=== PATIENT | female | born 1985 | race African-American/Black ===

== ENCOUNTER 2016-10-17 18:11 | Emergency (ER) | payer SELFPAY ==
[~2016-10-17] VITALS: Ht 167.6 cm; Wt 104.3 kg
[2016-10-17 18:17] VITALS: BP 115/58
[2016-10-17] MEDS ORDERED: AMOX500C PO (18:39)
[2016-10-17] MEDS ORDERED: HYDR-971 PO (18:39)
--- NOTE | 2016-10-17 18:39 | PHYS DOC ---
Past Medical History Past Medical History: No Pertinent History Past Surgical History: No Surgical History Additional Information: 5-6 CIGS/DAY Alcohol Use: None Drug Use: None Adult General Chief Complaint Chief Complaint: DENTAL PROBLEM HPI HPI Patient is a 30 year old female, history of poor dental health, comes emergency room today with complaint of atraumatic left-sided jaw pain and swelling that began approximately 2 days ago. Patient denies being on antibiotics or having dental procedures done within the past 30 days. She denies fevers, chills, myalgias or arthralgias. Review of Systems Review of Systems Constitutional: Denies fever or chills [] Eyes: Denies change in visual acuity, redness, or eye pain [] HENT: Denies nasal congestion or sore throat [] Respiratory: Denies cough or shortness of breath [] Cardiovascular: No additional information not addressed in HPI [] GI: Denies abdominal pain, nausea, vomiting, bloody stools or diarrhea [] : Denies dysuria or hematuria [] Musculoskeletal: Denies back pain or joint pain [] Integument: Denies rash or skin lesions [] Neurologic: Denies headache, focal weakness or sensory changes [] Endocrine: Denies polyuria or polydipsia [] Current Medications Current Medications Current Medications Medications (Trade) Dose Ordered Sig/Julisa Start Time Stop Time Status Last Admin Dose Admin Acetaminophen/ Hydrocodone Bitart (Lortab 5/325) 1 tab 1X ONCE 10/17/16 18:45 10/17/16 18:46 Amoxicillin (Amoxil) 500 mg 1X ONCE 10/17/16 18:45 10/17/16 18:46 Allergies Allergies Allergies Coded Allergies Type Severity Reaction Last Updated Verified No Known Drug Allergies 01/21/14 No Physical Exam Physical Exam Constitutional: Well developed, well nourished, no acute distress, non-toxic appearance. Patient is afebrile. HENT: Normocephalic, atraumatic, bilateral external ears normal, oropharynx moist, no oral exudates, nose normal. Left mandibular line and swollen with indurated soft tissues. There is no trismus. There is widespread dental caries and very stages of decay. The area of concern is along the left mandibular dentition with the first molar decayed into the pulp. There is a scant amount of purulent drainage coming from this area with surrounding gingival inflammation. Eyes: PERRLA, EOMI, conjunctiva normal, no discharge. [] Neck: Normal range of motion, no tenderness, supple, no stridor. [] Cardiovascular:Heart rate regular rhythm, no murmur [] Lungs & Thorax: Bilateral breath sounds clear to auscultation [] Abdomen: Bowel sounds normal, soft, no tenderness, no masses, no pulsatile masses. [] Skin: Warm, dry, no erythema, no rash. [] Back: No tenderness, no CVA tenderness. [] Extremities: No tenderness, no cyanosis, no clubbing, ROM intact, no edema. [] Neurologic: Alert and oriented X 3, normal motor function, normal sensory function, no focal deficits noted. [] Psychologic: Affect normal, judgement normal, mood normal. [] Current Patient Data Vital Signs Vital Signs Date Time Temp Pulse Resp B/P Pulse Ox O2 Delivery O2 Flow Rate FiO2 10/17/16 18:17 98.8 60 18 98 Room Air 98.8 EKG EKG [] Radiology/Procedures Radiology/Procedures [] Course & Med Decision Making Course & Med Decision Making Patient received 500 mg of amoxicillin and a Cecil 5/325 year the emergency department. She verbalizes understanding that she needs to follow up to see a dentist for definitive dental care. Dragon Disclaimer Dragon Disclaimer This electronic medical record was generated, in whole or in part, using a voice recognition dictation system. Departure Departure Impression: Primary Impression: Periapical abscess Disposition: HOME, SELF-CARE Condition: GOOD Referrals: NON,STAFF (PCP) Patient Instructions: Dental Abscess Additional Instructions: 1. Take the medication as prescribed. Apply a warm compress to the left jaw every 2 hours for 20-30 minutes at a time. 2. Review the discharge instructions provided for self-care and reasons to return to the emergency department. 3. Sure to call beginning tomorrow to schedule follow-up appointment with a dentist so that you may receive the appropriate dental care. Scripts Hydrocodone/Apap 5-325 (Cecil 5-325 Tablet)1 Each Tablet1 Tab PO PRN Q6HRS PRN PAIN #15 TAB Prov:NAI QUIÑONES 10/17/16 Amoxicillin 500 Mg [id number] Mg PO TID #30 CAP Prov:NAI QUIÑONES 10/17/16 NAI QUIÑONES Oct 17, 2016 18:39
[2016-10-17] MEDS ORDERED: AMOXICILLIN 250 MG CAPSULE. PO ONE (18:45)
[2016-10-17] MEDS ORDERED: HYDROCODONE/APAP 5/325MG TABLET. PO ONE (18:45)
== END 2016-10-17 18:51 | disposition home or self-care (01) ==
LOC: ER 18:11
DX: K04.7 Periapical abscess without sinus (principal); F17.210 Nicotine dependence, cigarettes, uncomplicated
CPT/HCPCS: 99283

== ENCOUNTER 2016-10-25 17:12 | Emergency (ER) | payer SELFPAY ==
[~2016-10-25] VITALS: Ht 157.5 cm; Wt 104.3 kg
[~2016-10-25 17:12] MED LIST: AMOX500C PO; HYDR-971 PO
[2016-10-25] MEDS ORDERED: ONDANSETRON PF 4 MG/2 ML VIAL. IV ONE (18:00)
[2016-10-25] MEDS ORDERED: IV NORMAL SALINE 1000ML BAG 1,000 ML IV ONE ×2 (18:00→20:00)
[2016-10-25] MEDS: FENTANYL PF 100 MCG/2 ML VIAL. IV PRN ×2 (18:02→20:02)
[2016-10-25 18:05] LABS: BASO % 0 % (0-3); EOS % 0 % (0-3); HEMATOCRIT 44.1 % (36.0-47.0); HEMOGLOBIN 14.9 g/dL (12.0-15.5); LYMPH # 2.2 x10^3/uL (1.0-4.8); LYMPH % 17 % (24-48); MEAN CORPUSCULAR HEMOGLOBIN 32 pg (25-35); MEAN CORPUSCULAR HGB CONC 34 g/dL (31-37); MEAN CORPUSCULAR VOLUME 94 fL (79-100); MONO % 8 % (0-9); NEUT % 75 % (31-73); PLATELET COUNT 286 x10^3/uL (140-400); RED BLOOD COUNT 4.67 x10^6/uL (3.50-5.40); RED CELL DISTRIBUTION WIDTH 13.6 % (11.5-14.5); WHITE BLOOD COUNT 13.6 x10^3/uL (4.0-11.0)
[2016-10-25 18:54] LABS: CALCIUM 10.4 mg/dL (8.5-10.1); CREATININE 1.4 mg/dL (0.6-1.0); GFR 52.7; POTASSIUM 3.1 mmol/L (3.5-5.1)
[2016-10-25 18:59] LABS: ALBUMIN 4.5 g/dL (3.4-5.0); ALBUMIN/GLOBULIN RATIO 0.8 (1.0-1.7); TOTAL BILIRUBIN 0.7 mg/dL (0.2-1.0); TOTAL PROTEIN 9.9 g/dL (6.4-8.2)
[2016-10-25] MEDS ORDERED: POTASSIUM CHLORIDE 20 MEQ/15 ML ORAL LIQUID. PO ONE (19:15)
[2016-10-25 19:39] VITALS: BP 151/71
[2016-10-25 19:41] LABS: BILIRUBIN,URINE SMALL (NEG); GLUCOSE,URINE NEGATIVE (NEG); NITRITE,URINE NEGATIVE (NEG); PH,URINE 5.5; PROTEIN,URINE 100 mg/dL (NEG-TRACE); UROBILINOGEN,URINE 0.2 mg/dL (0.2 mg/dL)
[2016-10-25 19:50] LABS: BACTERIA,URINE MODERATE /HPF (0-FEW); SQUAMOUS EPITHELIAL CELL,UR OCC /LPF
[2016-10-25] MEDS ORDERED: ONDA4TAB10 SL (19:56)
--- NOTE | 2016-10-25 19:57 | PHYS DOC ---
Past Medical History Past Medical History: No Pertinent History Past Surgical History: Other Additional Past Surgical Histo: root canal Additional Information: 5 cigarettes daily Alcohol Use: Occasionally Drug Use: None Adult General Chief Complaint Chief Complaint: ABDOMINAL PAIN HPI HPI Patient is a 30 year old female who presents with nausea & vomiting. The patient reports 2 day history of illness with 10 episodes of emesis today as well as 1 episode of diarrhea. She reports cramping body aches. She reports generalized abdominal discomfort. She denies fevers/chills, hematemesis, hematochezia/melena, dysuria/hematuria. She denies recent travel or antibiotics. She denies known past medical history or abdominal surgeries. Review of Systems Review of Systems Constitutional: Denies fever or chills Eyes: Denies change in visual acuity HENT: Denies nasal congestion or sore throat Respiratory: Denies cough or shortness of breath Cardiovascular: Denies chest pain or edema GI: Reports abdominal pain, nausea, vomiting, & diarrhea, denies bloody stools : Denies dysuria or hematuria Musculoskeletal: Denies back pain or joint pain Integument: Denies rash or skin lesions Neurologic: Denies headache, focal weakness or sensory changes Current Medications Current Medications Current Medications Medications (Trade) Dose Ordered Sig/Julisa Start Time Stop Time Status Last Admin Dose Admin Fentanyl Citrate (Fentanyl 2ml Vial) 50 mcg PRN Q15MIN PRN 10/25/16 18:00 10/25/16 21:29 DC 10/25/16 20:02 50 MCG Ondansetron HCl (Zofran) 4 mg 1X ONCE 10/25/16 18:00 10/25/16 18:01 DC 10/25/16 18:04 4 MG Potassium Chloride 40 meq 40 meq 1X ONCE 10/25/16 19:15 10/25/16 19:18 DC 10/25/16 19:25 40 MEQ Sodium Chloride (Iv Sodium Chloride 0.9% 1000ml Bag) 1,000 ml @ 1,000 mls/hr 1X ONCE 10/25/16 20:00 10/25/16 20:59 DC 10/25/16 20:02 1,000 MLS/HR Allergies Allergies Allergies Coded Allergies Type Severity Reaction Last Updated Verified No Known Drug Allergies 01/21/14 No Physical Exam Physical Exam Constitutional: obese, no acute distress, non-toxic appearance. HENT: Normocephalic, atraumatic, bilateral external ears normal, oropharynx dry , nose normal. Eyes: conjunctiva normal, no discharge. Neck: supple, no stridor. Cardiovascular: RRR, no murmurs, no edema. Lungs & Thorax: LCTAB, no wheezing, no respiratory distress. Abdomen: normal bowel sounds, soft, no focal tenderness, no rebound/guarding, no masses or pulsatile masses, nondistended. Skin: Warm, dry, no erythema, no rash. Back: No CVA tenderness. Extremities: No tenderness, no edema. Neurologic: Alert and oriented X 3, no focal deficits noted. Psychologic: anxious, reluctant to participate with physical exam Current Patient Data Vital Signs Vital Signs Date Time Temp Pulse Resp B/P Pulse Ox O2 Delivery O2 Flow Rate FiO2 10/25/16 21:00 86 100 Room Air 10/25/16 19:39 151/71 10/25/16 18:10 20 10/25/16 17:38 98.6 98.6 Lab Values Laboratory Tests Test 10/25/16 17:55 10/25/16 18:20 10/25/16 19:28 White Blood Count 13.6x10^3/uL (4.0-11.0) H Red Blood Count 4.67x10^6/uL (3.50-5.40) Hemoglobin 14.9g/dL (12.0-15.5) Hematocrit 44.1% (36.0-47.0) Mean Corpuscular Volume 94fL (79-100) Mean Corpuscular Hemoglobin 32pg (25-35) Mean Corpuscular Hemoglobin Concent 34g/dL (31-37) Red Cell Distribution Width 13.6% (11.5-14.5) Platelet Count 286x10^3/uL (140-400) Neutrophils (%) (Auto) 75% (31-73) H Lymphocytes (%) (Auto) 17% (24-48) L Monocytes (%) (Auto) 8% (0-9) Eosinophils (%) (Auto) 0% (0-3) Basophils (%) (Auto) 0% (0-3) Neutrophils # (Auto) 10.2x10^3uL (1.8-7.7) H Lymphocytes # (Auto) 2.2x10^3/uL (1.0-4.8) Monocytes # (Auto) 1.1x10^3/uL (0.0-1.1) Eosinophils # (Auto) 0.0x10^3/uL (0.0-0.7) Basophils # (Auto) 0.0x10^3/uL (0.0-0.2) Sodium Level 133mmol/L (136-145) L Potassium Level 3.1mmol/L (3.5-5.1) L Chloride Level 92mmol/L (98-107) L Carbon Dioxide Level 23mmol/L (21-32) Anion Gap 18 (6-14) H Blood Urea Nitrogen 25mg/dL (7-20) H Creatinine 1.4mg/dL (0.6-1.0) H Estimated GFR (Cockcroft-Gault) 52.7 BUN/Creatinine Ratio 18 (6-20) Glucose Level 117mg/dL (70-99) H Calcium Level 10.4mg/dL (8.5-10.1) H Total Bilirubin 0.7mg/dL (0.2-1.0) Aspartate Amino Transferase (AST) 52U/L (15-37) H Alanine Aminotransferase (ALT) 26U/L (14-59) Alkaline Phosphatase 82U/L (46-116) Total Protein 9.9g/dL (6.4-8.2) H Albumin 4.5g/dL (3.4-5.0) Albumin/Globulin Ratio 0.8 (1.0-1.7) L Lipase 214U/L (73-393) Urine Color Elba Urine Clarity Turbid Urine pH 5.5 Urine Specific Mora >=1.030 Urine Protein 100mg/dL (NEG-TRACE) Urine Glucose (UA) Negativemg/dL (NEG) Urine Ketones (Stick) 15mg/dL (NEG) Urine Blood Moderate (NEG) Urine Nitrite Negative (NEG) Urine Bilirubin Small (NEG) Urine Urobilinogen Dipstick 0.2mg/dL (0.2 mg/dL) Urine Leukocyte Esterase Negative (NEG) Urine RBC 3-5/HPF (0-2) Urine WBC 1-4/HPF (0-4) Urine Squamous Epithelial Cells Occ/LPF Urine Transitional Epithelial Cells Occ/LPF Urine Amorphous Sediment Present/HPF Urine Bacteria Moderate/HPF (0-FEW) Urine Hyaline Casts Many/HPF Laboratory Tests 10/25/16 17:55 Laboratory Tests 10/25/16 18:20 EKG EKG [] Radiology/Procedures Radiology/Procedures [] Course & Med Decision Making Course & Med Decision Making Pertinent Labs and Imaging studies reviewed. (See chart for details) The patient presents with vomiting. She has stable vitals, labs & clinical exam show dehydration. Gave IV fluid 2L of NS, as well as zofran & pain medication. Received oral potassium supplementation which she tolerated. Had a single episode of vomiting while in the emergency department. She improved with treatment. Recommend rest, PO hydration with small sips of clear liquids, gave prescription for zofran for pain, take tylenol or ibuprofen for pain, follow up with Dr. Fernandez or other primary care physician if not improving in 2-3 days. She is discharged home in stable & improved condition. Dragon Disclaimer Dragon Disclaimer This electronic medical record was generated, in whole or in part, using a voice recognition dictation system. Departure Departure Impression: Primary Impression: Nausea & vomiting Additional Impression: Hypokalemia Disposition: 01 HOME, SELF-CARE Condition: STABLE Referrals: NO PCP (PCP) IVANNA FERNANDEZ MD Patient Instructions: Nausea and Vomiting, [id number] Additional Instructions: You were seen in the emergency department today for nausea and vomiting. You were dehydrated and had slightly low potassium. Please rest, drink small sips of clear liquids to stay hydrated, use Zofran as needed for nausea, take Tylenol or ibuprofen for pain. It may take several days to recover from this illness. Please follow-up with Dr. Fernandez in the primary care clinic in about 2 or 3 days. Return to the emergency department for high fever, severe pain, uncontrolled vomiting, any otherwise worsening condition. Scripts Ondansetron (Zofran Odt)4 Mg Tab.rapdis1 Tab SL Q8HRS PRN NAUSEA #10 TAB Prov:SIMEON MEI MD 10/25/16 Problem Qualifiers SIMEON MEI MD Oct 25, 2016 19:57
== END 2016-10-25 21:29 | disposition home or self-care (01) ==
LOC: ER 17:12
DX: R11.2 Nausea with vomiting, unspecified (principal); E87.6 Hypokalemia; M79.1 Myalgia; F17.210 Nicotine dependence, cigarettes, uncomplicated
CPT/HCPCS: 36415; 80053; 81001; 83690; 85027; 87086; 96361; 96374; 96375; 96376; 99284; J2405; J3010; J7030

== ENCOUNTER 2017-03-08 23:28 | Emergency (ER) | payer SELFPAY ==
[~2017-03-08] VITALS: Ht 157.5 cm; Wt 104.3 kg
[~2017-03-08 23:28] MED LIST changes: +ONDA4TAB10 SL
[2017-03-09 01:39] LABS: BASO # 0.1 x10^3/uL (0.0-0.2); BASO % 1 % (0-3); EOS % 1 % (0-3); HEMATOCRIT 39.9 % (36.0-47.0); HEMOGLOBIN 13.5 g/dL (12.0-15.5); LYMPH # 3.7 x10^3/uL (1.0-4.8); LYMPH % 35 % (24-48); MEAN CORPUSCULAR HEMOGLOBIN 33 pg (25-35); MEAN CORPUSCULAR HGB CONC 34 g/dL (31-37); MEAN CORPUSCULAR VOLUME 97 fL (79-100); MONO % 6 % (0-9); NEUT % 58 % (31-73); PLATELET COUNT 192 x10^3/uL (140-400); RED BLOOD COUNT 4.11 x10^6/uL (3.50-5.40); RED CELL DISTRIBUTION WIDTH 13.9 % (11.5-14.5); WHITE BLOOD COUNT 10.6 x10^3/uL (4.0-11.0)
[2017-03-09 01:58] LABS: CALCIUM 9.1 mg/dL (8.5-10.1); CREATININE 0.9 mg/dL (0.6-1.0); GFR 87.3; POTASSIUM 3.5 mmol/L (3.5-5.1)
[2017-03-09] MEDS ORDERED: ONDANSETRON PF 4 MG/2 ML VIAL. IV ONE (02:00)
[2017-03-09] MEDS ORDERED: MORPHINE SULFATE 10 MG/ML VIAL. IV ONE (02:00)
[2017-03-09 02:04] LABS: ALBUMIN 3.7 g/dL (3.4-5.0); ALBUMIN/GLOBULIN RATIO 0.8 (1.0-1.7); C-REACTIVE PROTEIN 9.6 mg/L (0-3.3); TOTAL BILIRUBIN 0.3 mg/dL (0.2-1.0); TOTAL PROTEIN 8.4 g/dL (6.4-8.2)
--- NOTE | 2017-03-09 02:37 | RAD ---
Complete left breast ultrasound. History: 31-year-old female presents with left nipple hardness and pain. Patient noticed the findings 3 days ago. Denies injury, nipple discharge or breast-feeding. Patient reports this has happened before a long time ago. Comparison: None. Findings: Sonography of the entire left breast is performed, with all 4 quadrants documented in retroareolar position. Within the immediate retroareolar position is a heterogenous mass measuring up to 2.3 cm in greatest dimension with indistinct margins. Some internal vascularity is documented. Overlying dermal thickening is seen. Impression: A retroareolar mass is demonstrated. Infectious and malignant etiologies considered. Consider trial of antibiotic therapy (such as Bactrim) with short-term follow-up left breast ultrasound and outpatient diagnostic mammogram in 1 to 2 weeks. BI-RADS Category 0: Incomplete: Need additional imaging evaluation. Electronically signed by: Janet Kaplan MD (03/09/2017 2:34 AM) [facility]
[2017-03-09] MEDS ORDERED: oxyCODONE/APAP 5/325 1 TAB TABLET PO ONE (03:30)
[2017-03-09] MEDS ORDERED: CLINDAMYCIN HCL 150 MG CAPSULE. PO ONE (03:30)
[2017-03-09 03:58] VITALS: BP 124/81
--- NOTE | 2017-03-09 05:33 | PHYS DOC ---
Past Medical History Past Medical History: No Pertinent History Past Surgical History: Other Additional Past Surgical Histo: root canal Alcohol Use: Occasionally Drug Use: None Adult General Chief Complaint Chief Complaint: BREAST PAIN/INJURY HPI HPI Patient is a 31 year old [place] female presents with left breast/ areolar pain. Patient first noticed pain tenderness and swelling yesterday which is gradually worse. Patient denies injury to that region. Denies piercing. No history of MRSA or abscess. On evaluation, patient skin is appropriate for ethnicity there is slight erythema over the 12 o'clock position with soft tissue fullness. There is no induration or orange peeling appreciated. There is no streaking, or axillary tenderness or masses. Patient is denies fever chills, nausea vomiting or sweats. No other acute symptoms or complaints. Review of Systems Review of Systems Review symptoms as per history of present illness. All other review symptoms are negative. Current Medications Current Medications Current Medications Medications (Trade) Dose Ordered Sig/Julisa Start Time Stop Time Status Last Admin Dose Admin Clindamycin HCl (Cleocin) 300 mg 1X ONCE 03/09/17 03:30 03/09/17 03:31 DC 03/09/17 03:46 300 MG Morphine Sulfate 5 mg 1X ONCE 03/09/17 02:00 03/09/17 02:01 DC 03/09/17 01:42 5 MG Ondansetron HCl (Zofran) 4 mg 1X ONCE 03/09/17 02:00 03/09/17 02:01 DC 03/09/17 01:42 4 MG Oxycodone/ Acetaminophen (Percocet 5/325) 1 tab 1X ONCE 03/09/17 03:30 03/09/17 03:31 DC 03/09/17 03:46 1 TAB Allergies Allergies Allergies Coded Allergies Type Severity Reaction Last Updated Verified No Known Drug Allergies 01/21/14 No Physical Exam Physical Exam Constitutional: Well developed, well nourished, no acute distress, non-toxic appearance. [] HENT: Normocephalic, atraumatic, bilateral external ears normal, oropharynx moist, no oral exudates, nose normal. [] Eyes: PERRLA, EOMI, conjunctiva normal, no discharge. [] Neck: Normal range of motion, no tenderness, supple, no stridor. [] Cardiovascular:Heart rate regular rhythm, no murmur [] Lungs & Thorax: Bilateral breath sounds clear to auscultation [] Breast: Left breast, patient skin is appropriate for ethnicity there is slight erythema over the 12 o'clock position with soft tissue fullness. There is no induration or orange peeling appreciated. The nipple was not inverted no discharge is present.. There is no streaking, or axillary tenderness or masses. [] Skin: Warm, dry, no erythema, no rash. [] Back: No tenderness, no CVA tenderness. [] Extremities: No tenderness, no cyanosis, no clubbing, ROM intact, no edema. [] Neurologic: Alert and oriented X 3, normal motor function, normal sensory function, no focal deficits noted. [] Psychologic: Affect normal, judgement normal, mood normal. [] Current Patient Data Vital Signs Vital Signs Date Time Temp Pulse Resp B/P (MAP) Pulse Ox O2 Delivery O2 Flow Rate FiO2 03/09/17 03:58 80 20 124/81 (95) 99 Room Air 03/09/17 00:17 98.6 98.6 Lab Values Laboratory Tests Test 03/08/17 23:23 03/09/17 01:30 POC Urine HCG, Qualitative Hcg negative (Negative) White Blood Count 10.6 x10^3/uL (4.0-11.0) Red Blood Count 4.11 x10^6/uL (3.50-5.40) Hemoglobin 13.5 g/dL (12.0-15.5) Hematocrit 39.9 % (36.0-47.0) Mean Corpuscular Volume 97 fL (79-100) Mean Corpuscular Hemoglobin 33 pg (25-35) Mean Corpuscular Hemoglobin Concent 34 g/dL (31-37) Red Cell Distribution Width 13.9 % (11.5-14.5) Platelet Count 192 x10^3/uL (140-400) Neutrophils (%) (Auto) 58 % (31-73) Lymphocytes (%) (Auto) 35 % (24-48) Monocytes (%) (Auto) 6 % (0-9) Eosinophils (%) (Auto) 1 % (0-3) Basophils (%) (Auto) 1 % (0-3) Neutrophils # (Auto) 6.1 x10^3uL (1.8-7.7) Lymphocytes # (Auto) 3.7 x10^3/uL (1.0-4.8) Monocytes # (Auto) 0.7 x10^3/uL (0.0-1.1) Eosinophils # (Auto) 0.1 x10^3/uL (0.0-0.7) Basophils # (Auto) 0.1 x10^3/uL (0.0-0.2) Sodium Level 137 mmol/L (136-145) Potassium Level 3.5 mmol/L (3.5-5.1) Chloride Level 101 mmol/L (98-107) Carbon Dioxide Level 26 mmol/L (21-32) Anion Gap 10 (6-14) Blood Urea Nitrogen 15 mg/dL (7-20) Creatinine 0.9 mg/dL (0.6-1.0) Estimated GFR (Cockcroft-Gault) 87.3 BUN/Creatinine Ratio 17 (6-20) Glucose Level 105 mg/dL (70-99) H Calcium Level 9.1 mg/dL (8.5-10.1) Total Bilirubin 0.3 mg/dL (0.2-1.0) Aspartate Amino Transferase (AST) 24 U/L (15-37) Alanine Aminotransferase (ALT) 16 U/L (14-59) Alkaline Phosphatase 76 U/L (46-116) C-Reactive Protein, Quantitative 9.6 mg/L (0-3.3) H Total Protein 8.4 g/dL (6.4-8.2) H Albumin 3.7 g/dL (3.4-5.0) Albumin/Globulin Ratio 0.8 (1.0-1.7) L Laboratory Tests 03/09/17 01:30 Laboratory Tests 03/09/17 01:30 EKG EKG [] Radiology/Procedures Radiology/Procedures [Breast ultrasound: Retroareolar mass suspicious for infection or malignant etiology.] Course & Med Decision Making Course & Med Decision Making Pertinent Labs and Imaging studies reviewed. (See chart for details) [Case reviewed with Dr. Campbell in detail. Recommendations are outpatient antibiotics pain control with close follow-up in the office for reevaluation and repeat ultrasound 2 weeks. Patient discharged home with instructions to contact Dr. osorio's office today and schedule follow-up appointment and take antibiotics as prescribed. Discussed with the patient that both infectious and cancerous etiologies are considered at present and that she is agreeable to follow up without fail. Return precautions reviewed. Dragon Disclaimer Dragon Disclaimer This electronic medical record was generated, in whole or in part, using a voice recognition dictation system. Departure Departure Impression: Primary Impression: Breast pain, left Additional Impression: Breast mass in female Disposition: 01 HOME, SELF-CARE Condition: GOOD Referrals: LUIS RICE MD NO PCP (PCP) Patient Instructions: Mastitis, [id number] Additional Instructions: You were evaluated in the emergency department for left breast/nipple pain and swelling. Lab work and ultrasound were performed which show possible infection versus a potential breast cancer. It is important that you take the complete course antibiotics and follow-up with Dr. Campbell on-call for general surgery in 2 weeks for reevaluation. Please contact the number provided and schedule an office follow-up appointment. Please take ibuprofen for pain and pain medication as directed. In the meantime, return to the ED if new or worsening symptoms Problem Qualifiers ARMANDO ANGELES DO Mar 09, 2017 05:33
== END 2017-03-09 03:58 | disposition home or self-care (01) ==
LOC: ER 23:28
DX: N63 Unspecified lump in breast (principal)
CPT/HCPCS: 36415; 76641; 80053; 81025; 85025; 86140; 87040; 96374; 96375; 99285; J2270; J2405

== ENCOUNTER 2019-12-17 19:05 | Emergency (ER) | payer SELFPAY ==
[~2019-12-17] VITALS: Ht 157.5 cm; Wt 75.0 kg
[~2019-12-17 19:05] MED LIST changes: +HYDR-3164 PO; -HYDR-971 PO; +LURA40TA PO
[2019-12-17 19:31] VITALS: BP 126/95
[2019-12-17] MEDS ORDERED: HYDROcodone/APAP 5/325MG 1 TAB TABLET PO ONE (19:45)
[2019-12-17] MEDS ORDERED: ORPHENADRINE CITRATE 60 MG/2 ML VIAL. IM ONE (19:45)
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
== END 2019-12-17 19:47 | disposition left against medical advice (07) ==
LOC: ER 19:05
DX: S09.90XA Unspecified injury of head, initial encounter (principal); M54.42 Lumbago with sciatica, left side; M54.6 Pain in thoracic spine; M25.512 Pain in left shoulder; F17.200 Nicotine dependence, unspecified, uncomplicated; V43.52XA Car driver injured in collision with other type car in traffic accident, initial encounter; Y92.488 Other paved roadways as the place of occurrence of the external cause; Y93.89 Activity, other specified; Y99.8 Other external cause status
CPT/HCPCS: 99281

== ENCOUNTER 2020-06-21 09:12 | Emergency (ER) | payer SELFPAY ==
[~2020-06-21] VITALS: Ht 157.5 cm; Wt 104.0 kg
[2020-06-21 10:00] VITALS: BP 136/85
[2020-06-21 10:04] LABS: BILIRUBIN,URINE NEGATIVE (NEG); CLARITY,URINE CLEAR; COLOR,URINE YELLOW; NITRITE,URINE NEGATIVE (NEG); PH,URINE 5.5 (<5.0-8.0); PROTEIN,URINE NEGATIVE (NEG-TRACE)
--- NOTE | 2020-06-21 10:14 | PHYS DOC ---
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 General Adult EDM: Chief Complaint: CONSTIPATION HPI: HPI: Patient is a 34 year old female who presents to ER for evaluation of lower abdominal pain off and on after she had a baby a years ago. Patient says she also had constipation, had taken MiraLAX. Patient says she has been urged to urinate frequently, no pain when she urinates. Patient denies any nausea vomiting. Patient also complained of low back pain. All these problems have been going on since she had a done years ago. Patient denies any fever. Review of Systems: Review of Systems: Constitutional: Denies fever or chills. [] Eyes: Denies change in visual acuity. [] HENT: Denies nasal congestion or sore throat. [] Respiratory: Denies cough or shortness of breath. [] Cardiovascular: Denies chest pain or edema. [] GI: Positive for abdominal pain, constipation.] : Denies dysuria. [] Musculoskeletal: Positive for low back pain. Integument: Denies rash. [] Neurologic: Denies headache, focal weakness or sensory changes. [] Endocrine: Denies polyuria or polydipsia. [] Lymphatic: Denies swollen glands. [] Psychiatric: Denies depression or anxiety. [] Heart Score: Risk Factors: Risk Factors: DM, Current or recent (<one month) smoker, HTN, HLP, family history of CAD, obesity. Risk Scores: Score 0 - 3: 2.5% MACE over next 6 weeks - Discharge Home Score 4 - 6: 20.3% MACE over next 6 weeks - Admit for Clinical Observation Score 7 - 10: 72.7% MACE over next 6 weeks - Early Invasive Strategies Current Medications: Current Medications Medications (Trade) Dose Ordered Sig/Julisa Start Time Stop Time Status Last Admin Dose Admin Sodium Chloride 1,000 ml @ 1,000 mls/hr 1X ONCE 06/21/20 11:30 06/21/20 12:29 Allergies: Allergies: Allergies Coded Allergies Type Severity Reaction Last Updated Verified No Known Drug Allergies 01/21/14 No Physical Exam: PE: Constitutional: Well developed, well nourished, no acute distress, non-toxic appearance. [] HENT: Normocephalic, atraumatic, bilateral external ears normal, oropharynx moist, no oral exudates, nose normal. [] Eyes: PERRLA, EOMI, conjunctiva normal, no discharge. [] Neck: Normal range of motion, no tenderness, supple, no stridor. [] Cardiovascular:Heart rate regular rhythm, no murmur [] Lungs & Thorax: Bilateral breath sounds clear to auscultation [] Abdomen: Bowel sounds normal, soft, no tenderness, no masses, no pulsatile masses. [] Skin: Warm, dry, no erythema, no rash. [] Back: No tenderness, no CVA tenderness. [] Extremities: No tenderness, no cyanosis, no clubbing, ROM intact, no edema. [] Neurologic: Alert and oriented X 3, normal motor function, normal sensory function, no focal deficits noted. [] Psychologic: Affect normal, judgement normal, mood normal. [] Current Patient Data: Labs: Laboratory Tests Test 06/21/20 09:26 POC Urine HCG, Qualitative Hcg negative (Negative) Vital Signs: Vital Signs Date Time Temp Pulse Resp B/P (MAP) Pulse Ox O2 Delivery O2 Flow Rate FiO2 06/21/20 09:24 98.1 86 16 135/81 (99) 99 Room Air 98.1 EKG: EKG: [] Radiology/Procedures: Radiology/Procedures: [facility] [address] [place] [address] IMAGING REPORT Signed PATIENT: FRANDY BACA ACCOUNT: [id number] : 1985 LOCATION: ER AGE: 34 SEX: F EXAM STATUS: REG ER ORD. PHYSICIAN: ARLYN CONNELL DO REASON: lower abdominal pain, back pain PROCEDURE: CT ABD PELV W/ IV CONTRST ONLY CT SCAN OF THE ABDOMEN AND PELVIS WITH IV CONTRAST. History: Reason: lower abdominal pain, back pain Comparison:July 02, 2019. Procedure: Contiguous axial images of the abdomen and pelvis were performed after the administration of 75 cc of Omni 300 IV contrast. Oral contrast: No. Findings: There is calcified plaque at the left lung base. There is a peripherally calcified degenerating fibroids in the uterus. The ovaries are not well seen. The appendix is normal. The gallbladder is normal. Liver: Unremarkable Spleen: Unremarkable Pancreas: Unremarkable Adrenal Glands: Unremarkable Kidneys: Unremarkable There is no mass or lymphadenopathy. There is no free air. There is no free fluid. The urinary bladder appears normal. Impression: 1. Degenerating fibroids in the uterus are not seen previously. 2. Calcified plaque in the left lung base seen previously could be due to prior asbestos exposure. End impression PQRS Compliance Statement: One or more of the following individualized dose reduction techniques were utilized for this examination: 1. Automated exposure control 2. Adjustment of the mA and/or kV according to patient size 3. Use of iterative reconstruction technique Electronically signed by: Sha Michelle III, MD (06/21/2020 11:16 AM) [facility] DICTATED and SIGNED BY: SHA MICHELLE III, MD DATE: 06/21/20 [id number] 0 Course & Med Decision Making: Course & Med Decision Making Pertinent Labs and Imaging studies reviewed. (See chart for details) Patient is a 34-year-old female who presented to ER for evaluation of abdominal pain. CT scan her abdomen pelvis showed a small fibroid. 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 Patient is amenable to plan of care Dragjaleesa Disclaimer: Feli Disclaimer: This electronic medical record was generated, in whole or in part, using a voice recognition dictation system. Departure Departure Impression: Primary Impression: Uterine fibroid Disposition: 01 DC HOME SELF CARE/HOMELESS Condition: STABLE Referrals: NO PCP (PCP) BENEDICTO GUERRA Jr, MD please call this [employer] doctor for follow up about your fibroid problem. Patient Instructions: Fibroids, [id number] Additional Instructions: Thank you for visiting our Emergency Department. We appreciate you trusting us with your care. If any additional problems come up don't hesitate to return to visit us. Please follow up with your primary care provider so they can plan additional care if needed and know about the problem that you had. If symptoms worsen come back to the Emergency Department. Any concerning symptoms that start such as chest pain, shortness of air, weakness or numbness on one side of the body, running high fevers or any other concerning symptoms return to the ER. ARLYN CONNELL DO Jun 21, 2020 10:14
[2020-06-21 10:30] LABS: BACTERIA,URINE FEW /HPF (0-FEW); RBC,URINE 0 /HPF (0-2); WBC,URINE OCC /HPF (0-4)
[2020-06-21 10:30] LABS: BASO % 1 % (0-3); EOS % 1 % (0-3); HEMATOCRIT 42.2 % (36.0-47.0); HEMOGLOBIN 14.2 g/dL (12.0-15.5); LYMPH # 2.5 x10^3/uL (1.0-4.8); LYMPH % 33 % (24-48); MEAN CORPUSCULAR HEMOGLOBIN 33 pg (25-35); MEAN CORPUSCULAR HGB CONC 34 g/dL (31-37); MEAN CORPUSCULAR VOLUME 97 fL (79-100); MONO # 0.5 x10^3/uL (0.0-1.1); MONO % 7 % (0-9); NEUT # 4.4 x10^3/uL (1.8-7.7); NEUT % 59 % (31-73); PLATELET COUNT 233 x10^3/uL (140-400); RED BLOOD COUNT 4.35 x10^6/uL (3.50-5.40); RED CELL DISTRIBUTION WIDTH 14.2 % (11.5-14.5); WHITE BLOOD COUNT 7.5 x10^3/uL (4.0-11.0)
[2020-06-21 10:34] LABS: CALCIUM 9.6 mg/dL (8.5-10.1); CREATININE 0.7 mg/dL (0.6-1.0); GFR 114.6; POTASSIUM 3.8 mmol/L (3.5-5.1)
[2020-06-21 10:40] LABS: ALBUMIN 3.8 g/dL (3.4-5.0); ALBUMIN/GLOBULIN RATIO 0.8 (1.0-1.7); TOTAL BILIRUBIN 0.5 mg/dL (0.2-1.0); TOTAL PROTEIN 8.6 g/dL (6.4-8.2)
[2020-06-21] MEDS ORDERED: CONTRAST GIVEN. MC PRN (11:00)
[2020-06-21] MEDS ORDERED: IOHEXOL 300 MG/ML 100ML VIAL. IV ONE (11:00)
--- NOTE | 2020-06-21 11:19 | RAD ---
CT SCAN OF THE ABDOMEN AND PELVIS WITH IV CONTRAST. History: Reason: lower abdominal pain, back pain Comparison:July 02, 2019. Procedure: Contiguous axial images of the abdomen and pelvis were performed after the administration of 75 cc of Omni 300 IV contrast. Oral contrast: No. Findings: There is calcified plaque at the left lung base. There is a peripherally calcified degenerating fibroids in the uterus. The ovaries are not well seen. The appendix is normal. The gallbladder is normal. Liver: Unremarkable Spleen: Unremarkable Pancreas: Unremarkable Adrenal Glands: Unremarkable Kidneys: Unremarkable There is no mass or lymphadenopathy. There is no free air. There is no free fluid. The urinary bladder appears normal. Impression: 1. Degenerating fibroids in the uterus are not seen previously. 2. Calcified plaque in the left lung base seen previously could be due to prior asbestos exposure. End impression PQRS Compliance Statement: One or more of the following individualized dose reduction techniques were utilized for this examination: 1. Automated exposure control 2. Adjustment of the mA and/or kV according to patient size 3. Use of iterative reconstruction technique Electronically signed by: Irvin Chandler III, MD (06/21/2020 11:16 AM) [facility]
[2020-06-21] MEDS ORDERED: IV NORMAL SALINE 1000ML BAG 1,000 ML IV ONE (11:30)
== END 2020-06-21 11:34 | disposition home or self-care (01) ==
LOC: ER 09:12
DX: D25.9 Leiomyoma of uterus, unspecified (principal); R10.30 Lower abdominal pain, unspecified; M54.5 Low back pain; F17.200 Nicotine dependence, unspecified, uncomplicated; Z98.890 Other specified postprocedural states
CPT/HCPCS: 36415; 74177; 80053; 81001; 81025; 85025; 87086; 96360; 99285; J7030; Q9967

== ENCOUNTER 2020-09-09 18:58 | Emergency (ER) | payer SELFPAY ==
[~2020-09-09] VITALS: Ht 157.5 cm; Wt 95.4 kg
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
[2020-09-09] MEDS ORDERED: ONDANSETRON PF 4 MG/2 ML VIAL. IVP ONE (19:30)
[2020-09-09] MEDS ORDERED: IV NORMAL SALINE 1000ML BAG 1,000 ML IV SCH (19:30)
[2020-09-09] MEDS ORDERED: fentaNYL PF VIAL 100 MCG/2 ML VIAL IVP ONE (19:30)
[2020-09-09 19:40] LABS: BASO % 0 % (0-3); EOS % 0 % (0-3); HEMATOCRIT 47.8 % (36.0-47.0); HEMOGLOBIN 16.4 g/dL (12.0-15.5); LYMPH # 1.9 x10^3/uL (1.0-4.8); LYMPH % 19 % (24-48); MEAN CORPUSCULAR HEMOGLOBIN 33 pg (25-35); MEAN CORPUSCULAR HGB CONC 34 g/dL (31-37); MEAN CORPUSCULAR VOLUME 97 fL (79-100); MONO # 0.9 x10^3/uL (0.0-1.1); MONO % 9 % (0-9); NEUT # 7.1 x10^3/uL (1.8-7.7); NEUT % 72 % (31-73); PLATELET COUNT 237 x10^3/uL (140-400); RED BLOOD COUNT 4.95 x10^6/uL (3.50-5.40); RED CELL DISTRIBUTION WIDTH 13.6 % (11.5-14.5); WHITE BLOOD COUNT 9.9 x10^3/uL (4.0-11.0)
[2020-09-09 20:16] LABS: BILIRUBIN,URINE MODERATE (NEG); CLARITY,URINE CLOUDY; COLOR,URINE AMBER; NITRITE,URINE NEGATIVE (NEG); PROTEIN,URINE >=300 mg/dL (NEG-TRACE)
[2020-09-09 20:23] LABS: CALCIUM 10.3 mg/dL (8.5-10.1); CREATININE 1.6 mg/dL (0.6-1.0); GFR 44.1; POTASSIUM 3.4 mmol/L (3.5-5.1)
[2020-09-09 20:25] LABS: BACTERIA,URINE MANY /HPF (0-FEW); BARBITURATES NEG (NEG); BENZODIAZEPINES NEG (NEG); CANNABINOIDS NEG (NEG); COCAINE NEG (NEG); HYALINE CASTS, URINE MANY /HPF; METHADONE NEG (NEG); OPIATES NEG (NEG); PHENCYCLIDINE NEG (NEG)
[2020-09-09 20:28] LABS: AMPHETAMINE/METHAMPHETAMINE NEG (NEG)
[2020-09-09 20:30] LABS: ALBUMIN 4.7 g/dL (3.4-5.0); ALBUMIN/GLOBULIN RATIO 0.9 (1.0-1.7); MAGNESIUM 1.8 mg/dL (1.8-2.4); TOTAL BILIRUBIN 0.8 mg/dL (0.2-1.0); TOTAL PROTEIN 9.8 g/dL (6.4-8.2)
--- NOTE | 2020-09-09 20:52 | RAD ---
INDICATION: Reason: Constipation, N/V / Spl. Instructions: / History: COMPARISON: June 21, 2020 IMPRESSION: 3 views of the chest and abdomen obtained. No focal airspace consolidation or pulmonary edema. Cardia c silhouette is unremarkable. Air scattered throughout the large and small bowel in a nonspecific but not grossly obstructive pattern. Rim calcified lesion again seen in the pelvis. Degenerative changes of the hips and spine Electronically signed by: Yuniel Allen MD (09/09/2020 8:50 PM) [id number]
--- NOTE | 2020-09-09 21:22 | EKG ---
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
--- NOTE | 2020-09-09 22:29 | RAD ---
Exam: CT of abdomen and pelvis without contrast INDICATION: Epigastric pain, TECHNIQUE: Sequential axial images through the abdomen and pelvis obtained without IV contrast. Sagit katelynn and coronal reformatted images were reconstructed from the axial data and reviewed. Comparisons: None FINDINGS: Heart size is normal. No pericardial effusion. Visualized lung bases are clear. No pleural effusion. Evaluation of solid organs is limited secondary to noncontrast technique. Liver, spleen, pancreas, gallbladder and adrenals are unremarkable. No perinephric inflammation or hydronephrosis. No renal or ureteral calculi are identified. Calcified fibroids at the uterus. No abnormal adnexal mass identified. Large and small bowel are unremarkable. Appendix is normal. No free intra-abdominal air or fluid. No obstruction. Abdominal aorta has a normal course and caliber. No enlarged abdominal lymph nodes are identified. No suspicious osseous lesions or acute fractures. IMPRESSION: No acute process identified within the abdomen or pelvis. Exposure: One or more of the following in the visualized dose reduction techniques were utilized for this examination: 1. Automated exposure control 2. Adjustment of the MA and/or KV according to patient size 3. Use of iterative of reconstructive technique Electronically signed by: Katelyn Pavon MD (09/09/2020 10:26 PM) [facility]
[2020-09-09] MEDS ORDERED: MORPHINE SULFATE 4 MG/ML VIAL. IV ONE (22:30)
[2020-09-09 22:47] VITALS: BP 143/74
[2020-09-09] MEDS ORDERED: LIDO700A21 TP (22:52)
[2020-09-09] MEDS ORDERED: GABA-585 PO (22:52)
[2020-09-09] MEDS ORDERED: CYCL10TA2 PO (22:52)
[2020-09-09] MEDS ORDERED: ONDA4TAB12 PO (22:53)
== END 2020-09-09 23:15 | disposition home or self-care (01) ==
LOC: ER 18:58
DX: G89.29 Other chronic pain (principal); M54.6 Pain in thoracic spine; R11.2 Nausea with vomiting, unspecified; F17.200 Nicotine dependence, unspecified, uncomplicated; Z98.890 Other specified postprocedural states
CPT/HCPCS: 36415; 74022; 74176; 80053; 80307; 81001; 81025; 83690; 83735; 84484; 85025; 93005; 96361; 96374; 96375; 99285; J2060; J2270; J2405; J3010; J7030

== ENCOUNTER 2020-11-29 09:26 | Emergency (ER) | payer SELFPAY ==
[~2020-11-29] VITALS: Ht 157.5 cm; Wt 59.0 kg
[~2020-11-29 09:26] MED LIST changes: +CYCL10TA2 PO; +GABA-585 PO; +LIDO700A21 TP; +ONDA4TAB12 PO
[2020-11-29 09:40] VITALS: BP 143/74
[2020-11-29] MEDS ORDERED: KETOROLAC 30 MG/ML VIAL. IM ONE (10:45)
--- NOTE | 2020-11-29 10:58 | RAD ---
Exam performed: Right hand 3 views. Indication: Right hand pain status post punching wall. Date of Service: 11/29/2020 Comparison: None available Discussion: PA, oblique lateral radiographs of the hand reveal the osseous structures to be intact and well align ed. The joint spaces are well-preserved. The articular margins are smooth. There is mild soft tissue swelling, no definite foreign bodies detected. Impression: Mild soft tissue swelling without underlying acute bony abnormality. Electronically signed by: Lindsay Lundy MD (11/29/2020 10:55 AM) [id number]
[2020-11-29] MEDS ORDERED: NAPR-695 PO (11:19)
[2020-11-29] MEDS ORDERED: HYDR-2759 PO (11:19)
--- NOTE | 2020-11-29 11:19 | PHYS DOC ---
Past Medical History Past Medical History: Other Additional Past Medical Histor: GASTRITIS Past Surgical History: , Other Additional Past Surgical Histo: root canal Smoking Status: Current Every Day Smoker Alcohol Use: Occasionally Drug Use: None General Adult EDM: Chief Complaint: HAND PROBLEM HPI: HPI: Patient is a 34 year old [f__sex] who presents with [] Review of Systems: Review of Systems: Constitutional: Denies fever or chills Eyes: Denies redness or eye pain HENT: Denies nasal congestion or sore throat Respiratory: Denies cough or shortness of breath Cardiovascular: Denies chest pain or palpitations GI: Denies abdominal pain, nausea, or vomiting : Denies dysuria or hematuria Musculoskeletal: Denies back pain; reports right hand pain and swelling Integument: Denies rash or skin lesions Neurologic: Denies headache, focal weakness or sensory changes Complete systems were reviewed and found to be within normal limits, except as documented in this note. Heart Score: Risk Factors: Risk Factors: DM, Current or recent (<one month) smoker, HTN, HLP, family his tory of CAD, obesity. Risk Scores: Score 0 - 3: 2.5% MACE over next 6 weeks - Discharge Home Score 4 - 6: 20.3% MACE over next 6 weeks - Admit for Clinical Observation Score 7 - 10: 72.7% MACE over next 6 weeks - Early Invasive Strategies Current Medications: Current Medications Medications (Trade) Dose Ordered Sig/Julisa Start Time Stop Time Status Last Admin Dose Admin Ketorolac Tromethamine (Toradol 30mg Vial) 30 mg 1X ONCE 11/29/20 10:45 11/29/20 10:46 DC 11/29/20 11:06 30 MG Allergies: Allergies: Allergies Coded Allergies Type Severity Reaction Last Updated Verified No Known Drug Allergies 01/21/14 No Physical Exam: PE: Constitutional: Well developed, well nourished, no acute distress, non-toxic appearance HENT: Normocephalic, atraumatic Eyes: Conjunctiva normal, no discharge Neck: Normal range of motion, supple Lungs & Thorax: No respiratory distress, equal chest rise and fall Skin: Warm, dry, no erythema, no rash, small dorsal right carpal contusion noted Extremities: right dorsal metacarpal tenderness, ROM intact, mild edema Neurologic: Alert and oriented X 3, normal motor function, normal sensory function, no focal deficits noted Psychologic: Affect normal, judgment normal Current Patient Data: Vital Signs: Vital Signs Date Time Temp Pulse Resp B/P (MAP) Pulse Ox O2 Delivery O2 Flow Rate FiO2 11/29/20 09:40 98.8 90 16 143/74 (97) 99 Room Air 98.8 EKG: EKG: [] Radiology/Procedures: Radiology/Procedures: PROCEDURE: HAND RIGHT 3V Exam performed: Right hand 3 views. Indication: Right hand pain status post punching wall. Date of Service: 11/29/2020 Comparison: None available Discussion: PA, oblique lateral radiographs of the hand reveal the osseous structures to be intact and well aligned. The joint spaces are well-preserved. The articular margins are smooth. There is mild soft tissue swelling, no definite foreign bodies detected. Impression: Mild soft tissue swelling without underlying acute bony abnormality. Electronically signed by: Lindsay Lundy MD (11/29/2020 10:55 AM) [id number] Course & Med Decision Making: Course & Med Decision Making Pertinent Imaging studies reviewed. (See chart for details) Patient presents with report of blunt trauma to right hand after striking a wall 1 week ago. No obvious deformity appreciated. Some mild swelling and a small contusion appreciated. X-ray obtained without fracture or dislocation. Bacilio wrap applied for comfort. Patient educated on RICE. Symptomatic treatment provided. Ice pack applied. Patient stable for discharge with outpatient follow-up with PCP/orthopedics. Orthopedic referral provided. Discussed findings and plan with patient, who acknowledges understanding and agreement. Feli Disclaimer: Feli Disclaimer: This electronic medical record was generated, in whole or in part, using a voice recognition dictation system. Departure Departure Impression: Primary Impression: Contusion of hand, right Qualified Codes: S60.221A - Contusion of right hand, initial encounter Disposition: HOME / SELF CARE / HOMELESS Condition: STABLE Referrals: NO PCP (PCP) RADHA FORREST MD Patient Instructions: Elastic Bandage and RICE, Hand Contusion, [id number] Scripts Hydrocodone/Acetaminophen (Hydrocodone-Acetamin 5-325 mg) 1 Each Tablet 0.5 EACH PO Q6HRS PRN for PAIN, #10 TAB Prov: ETHAN HEADLEY DO 11/29/20 Naproxen (NAPROXEN) 375 Mg Tablet 375 MG PO BID PRN for PAIN, #14 TAB Prov: ETHAN HEADLEY DO 11/29/20 ETHAN HEADLEY DO November 29, 2020 11:19
== END 2020-11-29 11:20 | disposition home or self-care (01) ==
LOC: ER 09:26
DX: S60.221A Contusion of right hand, initial encounter (principal); F17.200 Nicotine dependence, unspecified, uncomplicated; W22.01XA Walked into wall, initial encounter; Y93.89 Activity, other specified; Y92.89 Other specified places as the place of occurrence of the external cause; Y99.8 Other external cause status
CPT/HCPCS: 73130; 96372; 99283; J1885